=== PATIENT | male | born 1985 | race Caucasian/White ===

== ENCOUNTER 2017-01-17 09:14 | Emergency (ER) | payer BC ==
[~2017-01-17] VITALS: Ht 180.3 cm; Wt 92.1 kg
[2017-01-17] MEDS ORDERED: PERCOCET 5MG/325MG TAB PO ONE (09:45)
[2017-01-17] MEDS ORDERED: CYCLOBENZAPRINE 10 MG TAB PO ONE (09:45)
[2017-01-17] MEDS ORDERED: CYCL10TA PO (10:30)
[2017-01-17 10:35] VITALS: BP 126/78
== END 2017-01-17 10:36 | disposition home or self-care (01) ==
LOC: M ED 09:14
DX: S46.912A Strain of unspecified muscle, fascia and tendon at shoulder and upper arm level, left arm, initial encounter (principal); M77.02 Medial epicondylitis, left elbow; W21.89XA Striking against or struck by other sports equipment, initial encounter; Y92.830 Public park as the place of occurrence of the external cause; Y93.64 Activity, baseball; Y99.9 Unspecified external cause status

== ENCOUNTER 2017-06-30 18:15 | Emergency (ER) | payer BC ==
[2017-06-30] MEDS: CEPHALEXIN 500 MG CAP PO (19:12)
== END 2017-06-30 19:16 | disposition home or self-care (01) ==
LOC: M ED 18:15
DX: S61.206A Unspecified open wound of right little finger without damage to nail, initial encounter (principal); W19.XXXA Unspecified fall, initial encounter; W26.8XXA Contact with other sharp object(s), not elsewhere classified, initial encounter; Y92.098 Other place in other non-institutional residence as the place of occurrence of the external cause; R56.9 Unspecified convulsions
CPT/HCPCS: 99283

== ENCOUNTER 2017-11-22 21:22 | Emergency (ER) | payer BC ==
[2017-11-23] MEDS ORDERED: ISOVUE-370 76% 100ML VIAL (Q9967) As Ordered (00:10)
[2017-11-23 00:12] LABS: BASO # 0.1 10^3/uL (0.0-0.2); BASO % 0.7 % (0.0-1.0); EOS # 0.1 10^3/uL (0.0-0.50); EOS % 1.4 % (0.0-3.0); HEMOGLOBIN 14.1 g/dl (13.5-17.5); IMMATURE GRANULOCYTE % 0.5 % (0-3.0); LYMPH # 2.9 10^3/uL (1.5-4.5); LYMPH % 34.3 % (24.0-44.0); MEAN CORPUSCULAR HEMOGLOBIN 29.3 pg (27.0-33.0); MEAN CORPUSCULAR HGB CONC 34.4 g/dl (32.0-36.5); MEAN CORPUSCULAR VOLUME 85.1 fl (80.0-96.0); MONO # 0.6 10^3/uL (0.0-0.8); MONO % 7.6 % (0.0-5.0); NEUTROPHILS # 4.7 10^3/uL (1.8-7.7); NEUTROPHILS % 55.5 % (36.0-66.0); PLATELET COUNT, AUTOMATED 223 10^3/uL (150-450); RED BLOOD COUNT 4.82 10^6/uL (4.30-6.10); RED CELL DISTRIBUTION WIDTH 11.8 % (11.5-14.5); WHITE BLOOD COUNT 8.4 10^3/uL (4.0-10.0)
[2017-11-23 00:14] LABS: KETONE, URINE AUTO RFX NEGATIVE (NEGATIVE); LEUKOCYTE ESTERASE UR AUTO RFX NEGATIVE (NEGATIVE); MUCUS, URINE RFX LARGE (NEGATIVE); NITRITE, URINE AUTO RFX NEGATIVE (NEGATIVE); RBC, URINE AUTO RFX 1 /HPF (0-3); SPECIFIC GRAVITY UR AUTO RFX 1.033 (1.002-1.035); SQUAM EPITHELIAL CELL UR AURFX 0 /HPF (0-6); WBC, URINE AUTO RFX 1 /HPF (0-3)
[2017-11-23] MEDS: KETOROLAC 30 MG/ML VIAL (J1885) IV (00:15)
[2017-11-23 00:29] LABS: ALBUMIN 3.7 GM/DL (3.2-5.2); ALBUMIN/GLOBULIN RATIO 1.12 (1.00-1.93); ALKALINE PHOSPHATASE 64 U/L (45-117); ALT/SGPT 66 U/L (12-78); ANION GAP 5 MEQ/L (8-16); AST/SGOT 25 U/L (7-37); BILIRUBIN,DIRECT < 0.1 MG/DL (0.0-0.2); BILIRUBIN,TOTAL 0.3 MG/DL (0.2-1.0); BLOOD UREA NITROGEN 18 MG/DL (7-18); CALCIUM LEVEL 8.5 MG/DL (8.5-10.1); CARBON DIOXIDE LEVEL 31 MEQ/L (21-32); CHLORIDE LEVEL 106 MEQ/L (98-107); GLOMERULAR FILTRATION RATE > 60.0 (>60); GLUCOSE, FASTING 101 MG/DL (70-100); LIPASE 107 U/L (73-393); SODIUM LEVEL 142 MEQ/L (136-145)
== END 2017-11-23 02:24 | disposition home or self-care (01) ==
LOC: M ED 21:22
DX: R10.32 Left lower quadrant pain (principal); R56.9 Unspecified convulsions; K76.0 Fatty (change of) liver, not elsewhere classified
CPT/HCPCS: Q9967

== ENCOUNTER 2018-03-26 16:48 | Emergency (ER) | payer OTHER, BC ==
[2018-03-26] MEDS: IBUPROFEN 600 MG TAB PO (17:44)
== END 2018-03-26 17:58 | disposition home or self-care (01) ==
LOC: M ED 16:48
DX: S93.401A Sprain of unspecified ligament of right ankle, initial encounter (principal); X50.1XXA Overexertion from prolonged static or awkward postures, initial encounter; Y92.410 Unspecified street and highway as the place of occurrence of the external cause
CPT/HCPCS: 73610

== ENCOUNTER → 2018-04-25 | Outpatient (REF) | payer BC ==
[~2018-04-25] MED LIST: CYCL10TA PO; IBUP-1022 PO; KEFL500C17 PO
[2018-04-25 14:54] LABS: BASO # 0.1 10^3/uL (0.0-0.2); BASO % 1.2 % (0.0-1.0); EOS # 0.1 10^3/uL (0.0-0.50); EOS % 1.6 % (0.0-3.0); HEMATOCRIT 46.7 % (42.0-52.0); HEMOGLOBIN 15.5 g/dl (13.5-17.5); LYMPH # 1.8 10^3/uL (1.5-4.5); LYMPH % 31.4 % (24.0-44.0); MEAN CORPUSCULAR HEMOGLOBIN 28.4 pg (27.0-33.0); MEAN CORPUSCULAR HGB CONC 33.2 g/dl (32.0-36.5); MEAN CORPUSCULAR VOLUME 85.5 fl (80.0-96.0); MONO # 0.6 10^3/uL (0.0-0.8); MONO % 10.6 % (0.0-5.0); NEUTROPHILS # 3.1 10^3/uL (1.8-7.7); PLATELET COUNT, AUTOMATED 233 10^3/uL (150-450); RED BLOOD COUNT 5.46 10^6/uL (4.30-6.10); WHITE BLOOD COUNT 5.6 10^3/uL (4.0-10.0)
[2018-04-25 15:07] LABS: ALT/SGPT 35 U/L (12-78); BILIRUBIN,TOTAL 0.5 MG/DL (0.2-1.0); BLOOD UREA NITROGEN 19 MG/DL (7-18); CALCIUM LEVEL 8.9 MG/DL (8.5-10.1); CARBON DIOXIDE LEVEL 29 MEQ/L (21-32); CHLORIDE LEVEL 103 MEQ/L (98-107); FREE T4 0.77 NG/DL (0.76-1.46); GLOMERULAR FILTRATION RATE > 60.0 (>60); GLUCOSE, FASTING 104 MG/DL (70-100); POTASSIUM SERUM 4.7 MEQ/L (3.5-5.1); SODIUM LEVEL 140 MEQ/L (136-145); TOTAL PROTEIN 7.5 GM/DL (6.4-8.2)
[2018-04-25 15:31] LABS: HEMOGLOBIN A1c 6.1 %
== END ==
LOC: M SFHCSACK 08:19
PROVIDERS: ATTEND Physician Assistant
DX: Z83.3 Family history of diabetes mellitus (principal); Z13.29 Encounter for screening for other suspected endocrine disorder; Z13.21 Encounter for screening for nutritional disorder

== ENCOUNTER 2019-11-09 17:49 | Emergency (ER) | payer BC ==
[~2019-11-09] VITALS: Ht 180.3 cm; Wt 96.8 kg
[~2019-11-09 17:49] MED LIST changes: +CYCL-707 PO; -CYCL10TA PO
[2019-11-09] MEDS ORDERED: AUGM875T28 PO (19:19)
[2019-11-09] MEDS ORDERED: AUGMENTIN 875 MG TAB PO ONE (19:30)
[2019-11-09 19:32] VITALS: BP 120/80
== END 2019-11-09 19:43 | disposition home or self-care (01) ==
LOC: M ED 17:49
DX: K04.7 Periapical abscess without sinus (principal)

== ENCOUNTER 2021-08-26 14:33 | Emergency (ER) | payer BC, OTHER ==
[~2021-08-26] VITALS: Ht 180.3 cm; Wt 100.9 kg
[2021-08-26 14:33] VITALS: BP 135/85
[~2021-08-26 14:33] MED LIST changes: +AUGM875T28 PO
== END 2021-08-26 17:44 | disposition left against medical advice (07) ==
LOC: M ED 14:33
DX: Z53.21 Procedure and treatment not carried out due to patient leaving prior to being seen by health care provider (principal)